=== PATIENT | male | born 1945 | race American Indian/Alaskan Native ===

== ENCOUNTER 2017-04-26 19:56 | Emergency (ER) | payer MEDICARE ==
--- NOTE | 2017-04-26 21:39 | XRay Report ---
FINAL REPORT PROCEDURE: XR SHOULDER 2 LT TECHNIQUE: Left shoulder radiographs including AP views in internal and external rotation and abduction. CPT 11829 HISTORY: injury,r/o dislocation COMPARISON: No prior studies are available for comparison. FINDINGS: Fracture (s) and/or Dislocation(s): None . Joint space(s): There is narrowing of the acromioclavicular joint space. Soft tissues: An irregular calcific density measuring 10 millimeters is identified in the subacromial region.. Bone mineralization: Normal . Foreign bodies: None . IMPRESSION: An irregular calcific density in the subacromial region most likely represents calcific tendinitis. MRI is recommended for further evaluation. Acromioclavicular osteoarthritis.
[2017-04-26] MEDS ORDERED: NORCO 5/325 PO ONE (23:29)
--- NOTE | 2017-04-26 23:37 | Emergency Department Report ---
Upper Extremity - HPI Chief Complaint: Extremity Injury, Upper Stated Complaint: LEFT SHOULDER INJURY Time Seen by Provider: 04/26/17 22:57 Upper Extremity: Left Shoulder (patient states he has a left-sided shoulder pain ) Occurred When: 1 Day Mechanism: Other Severity: moderate Symptoms: Yes Pain with Movement, Yes Limited Range of Movement, No Deformity, No Numbness, No Weakness, No Swelling, No Bruising/Ecchymosis, No Laceration or Abrasion Other History: 72-year-old male past medical history rheumatoid arthritis presents with complaint of left shoulder pain since yesterday. Patient states that he was cranking a motorized chainsaw with his left arm and while cranking felt a pop in his left shoulder. Patient is able to range his left shoulder but has somewhat limited abduction and abduction due to pain. Patient denies any numbness or tingling in arm. Able to range the fingers and wrist forearm and elbow without difficulty but states that lifting his left shoulder is somewhat painful. Patient took Tylenol with minimal relief of pain. Denies any other injuries. pt is awake alert and oriented 3 sitting comfortably accompanied by his . ED Review of Systems ROS: Stated complaint: LEFT SHOULDER INJURY Other details as noted in HPI Constitutional: denies: chills, fever Eyes: denies: eye pain, eye discharge, vision change ENT: denies: ear pain, throat pain Respiratory: denies: cough, shortness of breath, wheezing Cardiovascular: denies: chest pain, palpitations Endocrine: no symptoms reported Gastrointestinal: denies: abdominal pain, nausea, diarrhea Genitourinary: denies: urgency, dysuria Musculoskeletal: as per HPI, joint swelling, arthralgia. denies: back pain Skin: denies: rash, lesions Neurological: denies: headache, weakness, paresthesias Psychiatric: denies: anxiety, depression Hematological/Lymphatic: denies: easy bleeding, easy bruising ED Past Medical Hx - Past Medical History Previous Medical History?: No - Surgical History Additional Surgical History: right knee surgery - Social History Smoking Status: Current Some Day Smoker Substance Use Type: Alcohol - Medications Home Medications: Home Medications Medication Instructions Recorded Confirmed Last Taken Type Acetaminophen/Codeine [Tylenol 1 tab PO Q8H PRN #14 tab 04/26/17 Unknown Rx /Codeine # 3 tab] Naproxen [Naprosyn TAB] 375 mg PO BID PRN #30 tablet 04/26/17 Unknown Rx Upper Extremity Exam - Exam General: Vital signs noted. No distress. Alert and acting appropriately. Head and Torso: No HEENT Abnormality, No Neck Tenderness, No Chest/Lungs Abnormality, No Abdominal Tenderness, No Back Tenderness Shoulder Exam: Yes Shoulder Tenderness (left shoulder tenderness), No Clavicle Tenderness, No Normal Range of Motion in Shoulder (difficulty with shoulder abduction and abduction, mild internal rotation and external rotation preserved) , No Shoulder Deformity, No AC Joint Tenderness Arm Exam: No Arm/Humerus Tenderness, No Arm Deformity Elbow: No Elbow Tenderness, No Normal Range of Motion in Elbow, No Elbow Deformity Forearm: No Forearm Tenderness, No Forearm Deformity, No Pain with Pronation, No Pain with Supination Wrist: Yes Normal ROM in Wrist, No Wrist Tenderness, No Wrist Deformity, No Snuffbox Tenderness, No Pain with Axial Thumb Compression Hand: Yes Normal ROM in Digit(s), No Hand Tenderness, No Hand Deformity, No Digit Tenderness, No Digit(s) Deformity, No Tendon Dysfunction CMS Exam: Yes Normal Distal Pulses, Yes Normal Capillary Refill (distal pulses distal capillary refill fully intact), Yes Normal Distal Sensation, No Broken Skin ED Course Vital Signs 04/26/17 20:02 Temperature 98.6 F Pulse Rate 92 H Respiratory 20 Rate Blood Pressure 177/88 O2 Sat by Pulse 99 Oximetry ED Medical Decision Making - Medical Decision Making A/P: Calcific tendinitis left shoulder, possible rotator cuff injury 1-naproxen and Tylenol No. 3 when necessary 2-follow-up with orthopedics 3-possible rotator cuff injury as per history. Range of motion left shoulder mostly preserved, patient is able to internally and externally rotate with some pain but has difficulty with shoulder abduction. Patient is able to cross his arms across chest bilaterally not clinically dislocated. X-ray shows no fracture or dislocation 4-I advised pt to not use shoulder sling for prolonged periods of time as this may result in frozen shoulder. pt and pts expressed understanding of this instruction Critical care attestation.: If time is entered above; I have spent that time in minutes in the direct care of this critically ill patient, excluding procedure time. ED Disposition Clinical Impression: Shoulder sprain Qualifiers: Encounter type: initial encounter Shoulder sprain type: unspecified sprain Laterality: left Qualified Code(s): S43.402A - Unspecified sprain of left shoulder joint, initial encounter Calcific tendinitis of shoulder Qualifiers: Laterality: left Qualified Code(s): M75.32 - Calcific tendinitis of left shoulder Disposition: DISCHARGED TO HOME OR SELFCARE Is pt being admited?: No Does the pt Need Aspirin: No Condition: Stable Instructions: Calcific Tendinitis (ED), Shoulder Sprain (ED) Prescriptions: Acetaminophen/Codeine [Tylenol /Codeine # 3 tab] 1 tab PO Q8H PRN #14 tab PRN Reason: Pain Naproxen [Naprosyn TAB] 375 mg PO BID PRN #30 tablet PRN Reason: Pain Referrals: SANDOR ELLIOTT MD [Staff Physician] - 3-5 Days Forms: Accompanied Note Time of Disposition: 23:42
[2017-04-26 23:58] VITALS: BP 158/81
== END 2017-04-26 23:58 | disposition home or self-care (01) ==
LOC: ED 19:56
DX: S43.402A Unspecified sprain of left shoulder joint, initial encounter (principal); M75.32 Calcific tendinitis of left shoulder; F17.200 Nicotine dependence, unspecified, uncomplicated; X58.XXXA Exposure to other specified factors, initial encounter; Y93.89 Activity, other specified; Y99.8 Other external cause status; Y92.89 Other specified places as the place of occurrence of the external cause
CPT/HCPCS: 99283